=== PATIENT | male | born 1975 | race Two or more races ===

== ENCOUNTER 2018-05-05 11:55 | Emergency (ER) | payer SELFPAY ==
[~2018-05-05] VITALS: Ht 165.1 cm; Wt 68.0 kg
[2018-05-05 12:38] LABS: Urine Bacteria NONE SEEN /hpf (None Seen); Urine Blood Negative /uL (Negative); Urine WBC <1 /hpf (0 - 3)
[2018-05-05 13:30] LABS: Basophils # (auto) 0 uL; Basophils % (auto) 0.5 % (0.0-2.0); Eosinophils # (auto) 0.1 uL; Eosinophils % (auto) 2.1 % (0.0-7.0); Hematocrit 50.6 % (41.0-53.0); Hemoglobin 17.4 g/dL (13.5-17.5); Lymphocytes # (auto) 2.8 uL; Lymphocytes % (auto) 39.9 % (10.0-50.0); Mean Corpuscular Hemoglobin 30.5 pg (28.0-32.0); Mean Corpuscular Hgb Conc. 34.4 g/dL (32.0-36.0); Mean Corpuscular Volume 88.7 fL (80.0-100.0); Monocytes # (auto) 0.6 uL; Neutrophils # (auto) 3.4 uL; Neutrophils % (auto) 49.5 % (37.0-80.0); Nucleated Red Blood Cells % 0.3 %; Platelet Count (auto) 283 10^3/uL (140-450); Red Cell Distribution Width 13.1 % (11.8-14.3)
[2018-05-05 14:22] LABS: Albumin 3.8 g/dL (3.4-5.0); BUN/Creatinine Ratio 12.1; Calcium 8.9 mg/dL (8.5-10.1); Potassium 4.6 mmol/L (3.5-5.1)
[2018-05-05 14:31] LABS: Bilirubin, Total 0.7 mg/dL (0.2-1.0); Total Protein 7.4 g/dL (6.4-8.2)
[2018-05-05] MEDS ORDERED: SODIUM CHLORIDE 0.9% 1,000 ML IV ONE (15:09)
[2018-05-05] MEDS ORDERED: InsuLIN REG 1unit/0.01ml Soln (100units/ml) SC ONE (15:15)
[2018-05-05 17:16] VITALS: BP 120/72
== END 2018-05-05 17:18 | disposition home or self-care (01) ==
LOC: ER 12:08
DX: R73.9 Hyperglycemia, unspecified (principal)
CPT/HCPCS: 36415; 80053; 81001; 85025; 96372; 99283; J1815

== ENCOUNTER 2021-12-27 05:08 | Emergency (ER) | payer BC, OTHER ==
[~2021-12-27] VITALS: Ht 165.1 cm; Wt 63.0 kg
[~2021-12-27 05:08] MED LIST: METF-370 PO
[2021-12-27 05:15] VITALS: BP 130/85
[2021-12-27] MEDS ORDERED: HYDROcodone-ACET 10/325MG TAB PO ONE (07:30)
[2021-12-27] MEDS ORDERED: CYCL-837 PO (07:40)
[2021-12-27] MEDS ORDERED: IBUP800T27 PO (07:40)
[2021-12-27] MEDS ORDERED: IBUPROFEN 400 MG TAB PO ONE (13:43)
== END 2021-12-27 07:47 | disposition home or self-care (01) ==
LOC: EDBD 05:08 → ER 05:08 → EDUNIT# 05:08 → ER 07:47
DX: S20.219A Contusion of unspecified front wall of thorax, initial encounter (principal); V89.2XXA Person injured in unspecified motor-vehicle accident, traffic, initial encounter; Y93.89 Activity, other specified; Y92.89 Other specified places as the place of occurrence of the external cause; Y99.8 Other external cause status
CPT/HCPCS: 71045

== ENCOUNTER 2021-12-30 16:28 | Inpatient (IN) | payer BC, OTHER ==
[~2021-12-30] VITALS: Ht 167.6 cm; Wt 96.4 kg
[~2021-12-30 16:28] MED LIST changes: +CYCL-837 PO; +IBUP800T27 PO
[2021-12-30 17:00] LABS: Basophils # (auto) 0.1 10 ^3/uL (0-0.2); Basophils % (auto) 0.6 % (0.0-2.0); Eosinophils # (auto) 0.2 10 ^3/uL (0-0.8); Eosinophils % (auto) 1.8 % (0.0-7.0); Hematocrit 48.7 % (41.0-53.0); Hemoglobin 17.3 g/dL (13.5-17.5); Lymphocytes # (auto) 3.5 10 ^3/uL (0.4-5.4); Lymphocytes % (auto) 35.4 % (10.0-50.0); Mean Corpuscular Hemoglobin 31.1 pg (28.0-32.0); Mean Corpuscular Hgb Conc. 35.5 g/dL (32.0-36.0); Mean Corpuscular Volume 87.7 fL (80.0-100.0); Monocytes # (auto) 0.7 10 ^3/uL (0-1.3); Neutrophils # (auto) 5.5 10 ^3/uL (1.6-8.6); Neutrophils % (auto) 55.2 % (37.0-80.0); Nucleated Red Blood Cells % 0.1 %; Red Blood Cells 5.55 10^6/uL (4.5-5.90); Red Cell Distribution Width 12.8 % (11.8-14.3)
[2021-12-30 17:15] LABS: BUN/Creatinine Ratio 19.1; Calcium 9.1 mg/dL (8.5-10.1); Magnesium 2.2 mg/dL (1.6-2.6); Potassium 4.6 mmol/L (3.5-5.1)
[2021-12-30 17:18] LABS: Bilirubin, Total 0.4 mg/dL (0.2-1.0); Total Protein 7.3 g/dL (6.4-8.2)
[2021-12-30] MEDS ORDERED: IOHEXOL 350 MG/ML 100ML IJ ONE (19:24)
[2021-12-30] MEDS ORDERED: fentaNYL CITRATE 100 MCG/2 ML VL IV ONE (19:30)
[2021-12-30] MEDS ORDERED: ASPirin 325 MG TAB PO ONE (19:30)
[2021-12-30] MEDS ORDERED: NITROGLYCERIN 0.4 MG SL TAB SL PRN (21:15)
[2021-12-30] MEDS ORDERED: TEMAZEPAM 15 MG CAP PO PRN (21:15)
[2021-12-30] MEDS ORDERED: DEXTROSE (50%) 50ML SYRG IV PRN (21:15)
[2021-12-30] MEDS ORDERED: ONDANSETRON HCL 4 MG/2 ML VIAL IV PRN (21:15)
[2021-12-30] MEDS ORDERED: MORPHINE SULFATE INJ 2 MG/ml SYRG IV PRN (21:15)
[2021-12-30 21:50] LABS: Cholesterol 169 mg/dL (< 200); HDL Cholesterol 42 mg/dL (40-59); LDL Cholesterol 116 mg/dL (< 100); Triglycerides 218 mg/dL (< 150)
[2021-12-30] MEDS: ACCU-CHEK COMFORT CURVE STRIP VI SCH (22:35)
[2021-12-30] MEDS: ATORVASTATIN 20 MG TAB PO SCH (22:39)
[2021-12-30] MEDS: InsuLIN REG 1unit/0.01ml Soln (100units/ml) SC SCH (22:40)
[2021-12-31] MEDS: ACCU-CHEK COMFORT CURVE STRIP VI SCH ×4 (06:53→21:11)
[2021-12-31] MEDS: InsuLIN REG 1unit/0.01ml Soln (100units/ml) SC SCH ×4 (06:53→21:01)
[2021-12-31] MEDS: ASPirin 81 mg TAB PO SCH (08:17)
[2021-12-31] MEDS: PANTOPRAZOLE 40 MG TAB PO SCH (08:17)
[2021-12-31] MEDS: HYDROcodone-ACET 5/325MG TAB PO PRN (12:30)
[2021-12-31] MEDS: ATORVASTATIN 20 MG TAB PO SCH (21:00)
[2021-12-31] MEDS: ACETAMINOPHEN 325 MG TAB PO PRN (21:56)
[2021-12-31 22:00] VITALS: BP 117/70
[2022-01-01] MEDS: InsuLIN REG 1unit/0.01ml Soln (100units/ml) SC SCH ×3 (05:52→16:59)
[2022-01-01] MEDS: ACCU-CHEK COMFORT CURVE STRIP VI SCH ×3 (06:11→16:57)
[2022-01-01] MEDS: ACETAMINOPHEN 325 MG TAB PO PRN (06:12)
[2022-01-01 06:28] VITALS: BP 140/83
[2022-01-01 08:00] VITALS: BP 126/95
[2022-01-01] MEDS: PANTOPRAZOLE 40 MG TAB PO SCH (09:38)
[2022-01-01] MEDS: ASPirin 81 mg TAB PO SCH (09:38)
[2022-01-01 12:00] VITALS: BP 110/80
[2022-01-01] MEDS: HYDROcodone-ACET 5/325MG TAB PO PRN ×2 (12:51→20:14)
[2022-01-01 17:00] VITALS: BP 108/78
== END 2022-01-01 21:10 | disposition short-term general hospital (02) | DRG 315 ==
LOC: ER 16:28 → TELE 21:24 → TELE-WESTW 12-31 18:35
PROVIDERS: ADMIT Nurse Practitioner; ATTEND Internal Medicine
DX: S26.91XA Contusion of heart, unspecified with or without hemopericardium, initial encounter (principal); S22.20XA Unspecified fracture of sternum, initial encounter for closed fracture; W22.10XA Striking against or struck by unspecified automobile airbag, initial encounter; E11.9 Type 2 diabetes mellitus without complications; E04.2 Nontoxic multinodular goiter; K80.20 Calculus of gallbladder without cholecystitis without obstruction; Z20.822 Contact with and (suspected) exposure to COVID-19; V89.2XXA Person injured in unspecified motor-vehicle accident, traffic, initial encounter; Y93.89 Activity, other specified; Y99.8 Other external cause status; Z83.3 Family history of diabetes mellitus; Y92.410 Unspecified street and highway as the place of occurrence of the external cause
CPT/HCPCS: 36415; 70450; 71046; 71275; 72125; 80053; 80061; 82962; 83735; 84484; 85025; 87426; 93005; 93306; 96372; 96374; G0378; J1815

== ENCOUNTER 2022-03-11 10:48 | Emergency (ER) | payer BC ==
[~2022-03-11] VITALS: Ht 165.1 cm; Wt 63.0 kg
[2022-03-11 11:26] LABS: Urine Bacteria NONE SEEN /hpf (None Seen); Urine Blood Negative /uL (Negative); Urine Specific Gravity 1.034 (1.001-1.035); Urine WBC <1 /hpf (0 - 3)
[2022-03-11 11:31] LABS: Basophils # (auto) 0 10 ^3/uL (0-0.2); Eosinophils # (auto) 0.1 10 ^3/uL (0-0.8); Monocytes # (auto) 0.7 10 ^3/uL (0-1.3)
[2022-03-11 11:33] LABS: Basophils % (auto) 0.5 % (0.0-2.0); Eosinophils % (auto) 0.9 % (0.0-7.0); Hematocrit 52.3 % (41.0-53.0); Lymphocytes # (auto) 2.9 10 ^3/uL (0.4-5.4); Lymphocytes % (auto) 32.3 % (10.0-50.0); Mean Corpuscular Hemoglobin 30.4 pg (28.0-32.0); Mean Corpuscular Hgb Conc. 34.4 g/dL (32.0-36.0); Mean Corpuscular Volume 88.4 fL (80.0-100.0); Neutrophils # (auto) 5.2 10 ^3/uL (1.6-8.6); Neutrophils % (auto) 58.3 % (37.0-80.0); Nucleated Red Blood Cells % 0.2 %; Red Blood Cells 5.91 10^6/uL (4.5-5.90); Red Cell Distribution Width 13.3 % (11.8-14.3)
[2022-03-11 11:52] LABS: Albumin 4.4 g/dL (3.4-5.0); BUN/Creatinine Ratio 11.5; Calcium 9.5 mg/dL (8.5-10.1); Potassium 4.5 mmol/L (3.5-5.1)
[2022-03-11 11:54] LABS: Bilirubin, Total 0.7 mg/dL (0.2-1.0); Total Protein 8.2 g/dL (6.4-8.2)
[2022-03-11] MEDS ORDERED: MECLIZINE HCL 25 MG TAB PO ONE (12:15)
[2022-03-11] MEDS ORDERED: ONDANSETRON ODT 4 MG TAB PO ONE (12:15)
[2022-03-11] MEDS ORDERED: MECL25TA18 PO (17:07)
[2022-03-11 17:40] VITALS: BP 122/92
== END 2022-03-11 17:43 | disposition home or self-care (01) ==
LOC: ER 10:48
DX: R42 Dizziness and giddiness (principal); E11.9 Type 2 diabetes mellitus without complications
CPT/HCPCS: 36415; 80053; 81001; 82962; 85025; 99283; J8597; Q0162